=== PATIENT | female | born 1990 | race American Indian/Alaskan Native ===

== ENCOUNTER 2016-08-19 20:19 | Emergency (ER) | payer BC ==
[2016-08-19] MEDS ORDERED: NACL 0.9% 1000 ML 1,000 ML IV ONE (21:21)
--- NOTE | 2016-08-19 21:26 | Emergency Department Report ---
ED Syncope HPI - General Chief Complaint: Syncope Stated Complaint: SYNCOPAL EPISODE Time Seen by Provider: 08/19/16 21:14 - History of Present Illness Initial Comments: Patient is a 26-year-old female with history of asthma which has been well under control presenting today because of a syncopal episode. Patient states that she walked to the library in the heat and was standing in line and feeling really warm all over and nauseous and then syncopized and felt to the ground and hit her face. Patient states that she has not had much in terms of water today. Has not had any episodes in the recent past. Does not know of any cardiac disease or sudden unexpected cardiac in family members. No chest pain or palpitations prior to this syncopal episode. In the field the patient was found to have a fingerstick of 93 and a blood pressure initially of 90/58, received 1 L bolus of normal saline with pressure improving to 120/67. - Related Data Allergies/Adverse Reactions: Allergies No Known Allergies Allergy (Verified 08/19/16 20:59) Home Medications: Ambulatory Orders Phenazopyridine [Pyridium] 200 mg PO TID PRN #10 tab 08/15/15 Sulfamethoxazole/Trimethoprim [Bactrim DS TAB] 1 each PO BID #10 tablet ED Review of Systems ROS: Stated complaint: SYNCOPAL EPISODE Other details as noted in HPI Comment: All other systems reviewed and negative Constitutional: denies: chills, fever Respiratory: denies: cough Cardiovascular: denies: chest pain Gastrointestinal: nausea. denies: abdominal pain, vomiting Genitourinary: denies: dysuria Skin: denies: rash ED Past Medical Hx - Past Medical History Previous Medical History?: Yes Hx Hypertension: No Hx CVA: No Hx Heart Attack/AMI: No Hx Congestive Heart Failure: No Hx Diabetes: No Hx Deep Vein Thrombosis: No Hx Pulmonary Embolism: No Hx GERD: No Hx Liver Disease: No Hx Renal Disease: No Hx Sickle Cell Disease: No Hx Arthritis: No Hx Headaches / Migraines: No Hx Seizures: No Hx Kidney Stones: No Hx Psychiatric Treatment: No Hx Asthma: Yes Hx COPD: No Hx Tuberculosis: No Hx Dementia: No Hx HIV: No - Surgical History Past Surgical History?: Yes Hx Coronary Stent: No Hx Open Heart Surgery: No Hx Pacemaker: No Hx Internal Defibrillator: No Hx Cholecystectomy: No Hx Appendectomy: No Hx Breast Surgery: No Additional Surgical History: Muscle correction left eye - Social History Smoking Status: Never Smoker Substance Use Type: None - Medications Home Medications: Home Medications Medication Instructions Recorded Confirmed Last Taken Type Phenazopyridine [Pyridium] 200 mg PO TID PRN #10 tab 08/15/15 Unknown Rx Sulfamethoxazole/Trimethoprim 1 each PO BID #10 tablet 08/15/15 Unknown Rx [Bactrim DS TAB] ED Physical Exam - General Limitations: No Limitations General appearance: alert, in no apparent distress - Head Head exam: Present: other (abrasions on the nose and cheeks, no racoon eyes or madden sign, no bleeding or clear fluid from nose or ears) - Eye Eye exam: Present: normal appearance, PERRL, EOMI, other (no periorbital tenderness) - ENT ENT exam: Present: mucous membranes dry - Neck Neck exam: Present: normal inspection, full ROM - Respiratory Respiratory exam: Present: normal lung sounds bilaterally. Absent: respiratory distress - Cardiovascular Cardiovascular Exam: Present: regular rate, normal rhythm - GI/Abdominal GI/Abdominal exam: Present: soft. Absent: distended, tenderness - Neurological Exam Neurological exam: Present: alert, oriented X3, CN II-XII intact. Absent: motor sensory deficit - Psychiatric Psychiatric exam: Present: normal affect - Skin Skin exam: Present: abrasion ED Course Vital Signs 08/19/16 08/20/16 21:23 00:08 Temperature 98.6 F Pulse Rate 60 62 Respiratory 16 16 Rate Blood Pressure 114/68 110/72 [Left] O2 Sat by Pulse 100 100 Oximetry ED Medical Decision Making - Lab Data Result diagrams: 08/19/16 21:46 08/19/16 21:46 - Medical Decision Making History and exam is most consistent with vasovagal syncope, 1 L normal saline ordered, basic labs including CBC and BMP ordered Tetanus vaccine ordered EKG shows normal sinus rhythm at a rate of 61, no significant ST changes when mild changes from benign early repolarization, QTC at 366, no blocks, no signs of WPW or Brugada pattern Labs, UA and U unremarkable, no signs here are normal, patient is stable for discharge Critical care attestation.: If time is entered above; I have spent that time in minutes in the direct care of this critically ill patient, excluding procedure time. ED Disposition Clinical Impression: Syncope Qualifiers: Syncope type: vasovagal syncope Qualified Code(s): R55 - Syncope and collapse Disposition: DISCHARGED TO HOME OR SELFCARE Is pt being admited?: No Does the pt Need Aspirin: No Condition: Stable Instructions: Syncope (ED) Additional Instructions: Please follow up with the primary care physician in the next 3-5 days. Return the ER if your symptoms worsen or you develop new symptoms. Make sure to drink plenty of fluids especially when you go outside in the sun. Referrals: PRIMARY CARE, [Primary Care Provider] - 3-5 Days Time of Disposition: 00:32
[2016-08-19] MEDS ORDERED: TENIVAC IM ONE (21:29)
[2016-08-19] MEDS ORDERED: MOTRIN PO ONE (21:30)
[2016-08-19 22:18] LABS: Basophils % (Auto) 0.6 % (0.0-1.8); Hematocrit 35.2 % (30.3-42.9); Mean Corpuscular HGB Conc 34 % (30-34); Mean Corpuscular Hemoglobin 30 pg (28-32); Mean Corpuscular Volume 87 fl (79-97); Platelet Count 139 K/mm3 (140-440); Red Blood Count 4.05 M/mm3 (3.65-5.03); Red Cell Distribution Width 13.5 % (13.2-15.2); White Blood Count 8.5 K/mm3 (4.5-11.0)
[2016-08-19 22:29] LABS: Anion Gap 16 mmol/L; BUN/Creatinine Ratio 11.42; Blood Urea Nitrogen 8 mg/dL (7-17); Calcium 8.4 mg/dL (8.4-10.2); Carbon Dioxide 23 mmol/L (22-30); Chloride 103.2 mmol/L (98-107); Glucose 88 mg/dL (65-100); Potassium 3.9 mmol/L (3.6-5.0); Sodium 138 mmol/L (137-145)
[2016-08-20 00:06] LABS: Bilirubin,Urine NEG (Negative); Blood,Urine NEG (Negative); Ketones,Urine NEG (Negative); Leukocyte Esterase,Urine NEG (Negative); Nitrite,Urine NEG (Negative); Protein,Urine <15 mg/dL mg/dL (Negative); Urobilinogen,Urine < 2.0 mg/dL (<2.0)
[2016-08-20 00:08] VITALS: BP 110/72
== END 2016-08-20 00:40 | disposition home or self-care (01) ==
LOC: ED 20:19
DX: R55 Syncope and collapse (principal); J45.909 Unspecified asthma, uncomplicated
CPT/HCPCS: 36415; 80048; 81001; 81025; 85025; 90471; 90714; 93005; 93010; 96360; 99284; J7030